=== PATIENT | male | born 1995 ===

== ENCOUNTER 2018-01-03 09:22 | Emergency (ER) | payer BC, OTHER ==
[2018-01-03 09:22] VITALS: BMI 21.4
[2018-01-03 09:38] VITALS: RESP 18; TEMP 97.7
[2018-01-03] MEDS ORDERED: Sodium Chloride 0.9% 1,000 ML IV ONE (09:44)
--- NOTE | 2018-01-03 09:49 | C.PDOC ---
History Of Present Illness 22 yo male w/o significant PMHx come in for evaluation of diffuse lower abdominal cramping pain associated with watery non-bloody diarrhea 3-4 episodes daily for past 4 days. Pt reports, " every time I eat, I have diarrhea". Otherwi se, pt denies high fever, chills, recent illness or abx use, denies CP, SOB, dyspnea, cough, vomiting, change in appetite, hematemesis, melena, hematoschezia, back pain, UTI sx. Pt admits, [employer] had ham and cheese sandwich, tolerated well. Ambulate to Ed for evaluation, not in any apparent distress. Time Seen by Provider: 01/03/18 09:23 Chief Complaint (Nursing): Abdominal Pain History Per: Patient Past Medical History Reviewed: Historical Data, Nursing Documentation, Vital Signs Vital Signs: Last Vital Signs Temp 97.7 F 01/03/18 09:27 Pulse 70 01/03/18 09:27 Resp 18 01/03/18 09:27 BP 110/72 01/03/18 09:27 Pulse Ox 98 01/03/18 09:27 - Medical History PMH: No Chronic Diseases Surgical History: No Surg Hx Family History: States: No Known Family Hx - Social History Hx Tobacco Use: No Hx Alcohol Use: Yes Hx Substance Use: No - Immunization History Hx Tetanus Toxoid Vaccination: No Hx Influenza Vaccination: No Hx Pneumococcal Vaccination: No Review Of Systems Except As Marked, All Systems Reviewed And Found Negative. Constitutional: Negative for: Fever, Chills ENT: Negative for: Ear Discharge, Throat Pain Cardiovascular: Negative for: Chest Pain, Palpitations Respiratory: Negative for: Cough, Shortness of Breath, Wheezing Gastrointestinal: Positive for: Nausea, Abdominal Pain, Diarrhea. Negative for: Vomiting, Melena, Hematochezia, Hematemesis Genitourinary: Negative for: Dysuria Musculoskeletal: Negative for: Neck Pain, Back Pain Skin: Negative for: Rash Neurological: Negative for: Altered Mental Status Physical Exam - Physical Exam Appears: Well, Non-toxic, No Acute Distress Skin: Normal Color, Warm, Dry, No Rash Head: Normacephalic Eye(s): bilateral: PERRL Nose: No Flaring, No Discharge Throat: No Erythema Neck: Trachea Midline, Supple Cardiovascular: Rhythm Regular, No Murmur, No JVD Respiratory: No Decreased Breath Sounds, No Accessory Muscle Use, No Stridor, No Wheezing Gastrointestinal/Abdominal: Soft, Tenderness (mild diffuse lower abdominal), No Organomegaly, No Distention, No Guarding, No Rebound Back: No CVA Tenderness Extremity: Normal ROM, No Deformity, No Swelling Neurological/Psych: Oriented x3, Normal Speech ED Course And Treatment - Laboratory Results Result Diagrams: 01/03/18 10:10 01/03/18 10:10 Lab Interpretation: No Acute Changes O2 Sat by Pulse Oximetry: 98 Pulse Ox Interpretation: Normal Progress Note: Pt was OBS in ED for 2 hours and reports moderate improvement in sx. On re-evaluation, pt is afebrile, hemodynamicaly stable. Non-toxic. Tolerate Po well in ED. ENT: No acute changes,. neck: Supple, (-) JVD, (-) carotid bruits B/L. Abd: benign, (-) guarding, (-) rebound, (-) localized tenderness. back: (-) CVA tenderness. neurologicaly intact. Blood work review and appears without acute abnoramlities, no acute leukocytosis, no evidence of dehydration. Pt has clinical finidngs c/w diarrhea, r/o viral illness. Pt advised on diet restriction. ref. to F/u with PMD, GI in 2-3 days for re-eval. return to ED if any worsening or new changes. Disposition Counseled Patient/Family Regarding: Diagnosis, Need For Followup, Rx Given - Disposition Referrals: [facility] [Outside] Disposition: HOME/ ROUTINE Disposition Time: 11:28 Condition: STABLE Additional Instructions: Encourage fluids BRAT diet- banana, rice, apple sauce, toast. Avoid milk, cheese, pork , beef for 2-3 days. Advance as tolerated Take medication as prescribed Follow up with PMD, GI in 2- 3das for re-evaluation. return to ED if any worsening or new changes. Prescriptions: Famotidine [Pepcid] 20 mg PO BID #20 tab Instructions: Diarrhea in Adolescents and Adults, [place] Diet Forms: [facility] ([place]), Work Excuse - Clinical Impression Clinical Impression: Diarrhea
[2018-01-03] MEDS ORDERED: Sodium Chloride 0.9% 1,000 ML ONE (10:15)
[2018-01-03 10:16] LABS: BASO % 0.5 % (0.0-2.0); EOS # 0.2 K/uL (0.0-0.7); EOS % 3.7 % (0.0-4.0); HEMOGLOBIN 13.4 g/dL (12.0-18.0); LYMPH # 1.3 K/uL (1.0-4.3); LYMPH % 23.4 % (20.0-40.0); MEAN CELL VOLUME 84.9 fL (80.0-94.0); MEAN CORPUSCULAR HEMOGLOBIN 27.7 pg (27.0-31.0); MEAN CORPUSCULAR HGB CONC 32.6 g/dL (33.0-37.0); MONO # 0.5 K/uL (0.0-0.8); MONO % 9.4 % (0.0-10.0); NEUT # 3.5 K/uL (1.8-7.0); RBC 4.84 Mil/uL (4.40-5.90); WHITE BLOOD COUNT 5.6 K/uL (4.8-10.8)
[2018-01-03 10:30] LABS: ALB/GLOB RATIO 1.7 (1.0-2.1); ALBUMIN 4.4 g/dL (3.5-5.0); ALT/SGPT 22 U/L (21-72); AST/SGOT 19 U/L (17-59); BLOOD UREA NITROGEN 17 mg/dL (9-20); CALCIUM 9.7 mg/dl (8.6-10.4); GFR NON-AFRICAN AMERICAN > 60; LIPASE 93 U/L (23-300)
[2018-01-03 12:30] VITALS: BP 104/65; PULSE 75
[2018-01-03 12:46] LABS: SQUAMOUS EPITHIAL 1 /hpf (0-5); URINE BILIRUBIN NEGATIVE (NEGATIVE); URINE BLOOD NEGATIVE (NEGATIVE); URINE CLARITY Clear (Clear); URINE COLOR Yellow (YELLOW); URINE GLUCOSE (UA) NORMAL (Normal); URINE LEUKOCYTE ESTERASE NEG Leu/uL (Negative); URINE PROTEIN NEGATIVE (NEGATIVE); URINE UROBILINOGEN NORMAL mg/dL (0.2-1.0)
[2018-01-03 15:18] VITALS: O2SAT 98
== END 2018-01-03 12:31 | disposition home or self-care (01) ==
LOC: C.ER 09:22
DX: R19.7 Diarrhea, unspecified (principal)
CPT/HCPCS: 80053; 81001; 83690; 85025; 96361; 96374; 96375; 99284; J2405; J7030